=== PATIENT | male | born 1945 | race Caucasian/White ===

== ENCOUNTER → 2018-07-10 | Outpatient (CLI) | payer OTHER ==
--- NOTE | 2018-07-10 18:11 | 2DMMODE ---
[place] [address] 2 D/M-MODE ECHOCARDIOGRAM Name: COOPERJAGRUTI Room: [facility]#: [id number] Admission: 07/10/18 Attend Phys: Rosibel Tee, Discharge: Date of : 47 Date of Service: 07/10/18 1811 Report #: [id number] THIS REPORT FOR: //name// APPROVED REPORT Study performed: 07/10/2018 08:01:53 EXAM: Comprehensive 2D, Doppler, and color-flow Echocardiogram Patient Location: Out-Patient Status: routine BSA: 1.99 HR: 45 bpm BP: 120/70 mmHg Other Information Study Quality: Good Indications Abnormal ECG 2D Dimensions IVSd: 11.53 (7-11mm) LVOT Diam: 20.36 (18-24mm) LVDd: 53.85 mm PWd: 8.24 (7-11mm) Ascending Ao: 33.87 (22-36mm) LVDs: 41.27 (25-40mm) Aortic Root: 34.52 mm Volumes Left Atrial Volume (Systole) LA ESV Index: 16.60 mL/m2 Aortic Valve AoV Peak Ralph.: 1.25 m/s AO Peak Gr.: 6.22 mmHg LVOT Max P.32 mmHg AO Mean Gr.: 3.63 mmHg LVOT Mean P.66 mmHg LVOT Max V: 0.91 m/s AO V2 VTI: 29.11 cm LVOT Mean V: 0.59 m/s RUDI (VTI): 2.45 cm2 LVOT V1 VTI: 21.88 cm Mitral Valve E/A Ratio: 0.88 MV Decel. Time: 215.48 ms MV E Max Ralph.: 0.49 m/s MV PHT: 62.49 [place] [address] 2 D/M-MODE ECHOCARDIOGRAM Name: JAGRUTI GAMBOA Room: [facility]#: [id number] Admission: 07/10/18 Attend Phys: Rosibel Tee, Discharge: Date of : 47 Date of Service: 07/10/181 Report #: [id number] MVA (PHT): 3.52 cm2 TDI E/Lateral E': 4.90 E/Medial E': 6.13 Medial E' Ralph.: 0.08 m/s Lateral E' Ralph.: 0.10 m/s Pulmonary Valve PV Peak Ralph.: 1.02 m/s PV Peak Gr.: 4.18 mmHg Left Ventricle The left ventricle is normal size. There is normal LV segmental wall motion. There is normal left ventricular wall thickness. Left ventricular systolic function is normal. LVEF is 55-60%. Grade I - abnormal relaxation pattern. Right Ventricle The right ventricle is normal size. The right ventricular systolic function is normal. Atria The left atrium size is normal. The right atrium size is normal. Aortic Valve The aortic valve is normal in structure. No aortic regurgitation is present. There is no aortic valvular stenosis. Mitral Valve The mitral valve is normal in structure. Mild mitral regurgitation. No evidence of mitral valve stenosis. Tricuspid Valve The tricuspid valve is normal in structure. There is no tricuspid valve regurgitation noted. Pulmonic Valve The pulmonary valve is normal in structure. Mild pulmonic regurgitation. Great Vessels The aortic root is normal in size. IVC is normal in size and collapses >50% with inspiration. Pericardium There is no peric[place] [address] 2 D/M-MODE ECHOCARDIOGRAM Name: COOPERJAGRUTI Room: [facility]#: [id number] Admission: 07/10/18 Attend Phys: Rosibel Tee, Discharge: Date of : 47 Date of Service: 07/10/18 181 Report #: [id number] <Conclusion> The left ventricle is normal size. There is normal left ventricular wall thickness. Left ventricular systolic function is normal. LVEF is 55-60%. Grade I - abnormal relaxation pattern. Mild mitral regurgitation. IVC is normal in size and collapses >50% with inspiration. <ELECTRONICALLY SIGNED> By: Aime Ruano MD, FACC 07/10/181810 10 10 Aime Ruano MD, FACC /INF
== END ==
LOC: M.CRD 07:46
DX: I35.0 Nonrheumatic aortic (valve) stenosis (principal); I34.0 Nonrheumatic mitral (valve) insufficiency; R94.31 Abnormal electrocardiogram [ECG] [EKG]; R00.1 Bradycardia, unspecified; I45.89 Other specified conduction disorders